=== PATIENT | female | born 1950 | race Caucasian/White ===

== ENCOUNTER → 2022-09-09 | Day surgery (SDC) | payer MEDICARE ==
[~2022-09-09] MED LIST: ALLOPURINOL300 MG PO; ARICEPT5 MG PO; BARIATRIC MV-I1 EACH; CEFTRIAXONE 1 GM VIAL ONE; CYMBALTA30 MG; DEXAMETHASONE SOD PHOS INJ 4 MG/ML SDV ONE; FENTANYL CITRATE/PF 100MCG/2 ML INJ ONE; IOPAMIDOL 610MG/1ML 300 MG/ML VIAL IV ONE; LACTATED RINGER'S 1,000 ML ONE; LIDOCAINE HCL 2% LOCAL INJ 5 ML SDV VIAL INJ ONE; NEURONTIN300 MG PO; ONDANSETRON HCL INJ 2MG/ML 2ML 2 MG/ML VIAL ONE; POVIDONE IODINE 0.05% 0.05 % ML PO ONE; PROPOFOL IV EMULSION 10 MG/ML 20 ML VIAL ONE; REMERON45 M1; SEVOFLURANE INHAL SOLN 250 ML PEN BTL ONE; TEMAZEPAM15 MG PO
[2022-09-09 09:00] VITALS: BP 129/74; PULSE 51; RESP 16; O2SAT 97
== END | disposition home or self-care (01) ==
LOC: OR 05:43
PROVIDERS: ATTEND Urology
DX: N20.1 Calculus of ureter (principal); N13.30 Unspecified hydronephrosis; Z79.899 Other long term (current) drug therapy
CPT/HCPCS: 52356; 71046; 74420; C1758; C1769; C2617; J0696; J1100; J2001; J2405; J2704; J3010; J7121; Q9967

== ENCOUNTER → 2022-09-30 | Day surgery (SDC) | payer MEDICARE ==
[~2022-09-30] MED LIST changes: -LACTATED RINGER'S 1,000 ML ONE; +MIDAZOLAM HCL 2 MG/2 ML VIAL ONE
[2022-09-30 06:32] LABS: BASOPHILS % 0.5 % (0.0-1.0); EOSINOPHILS # (AUTO) 0.1 (0.0-0.4); EOSINOPHILS % 1.9 % (0.0-6.0); HEMATOCRIT 37.1 % (34.2-44.1); HEMOGLOBIN 10.5 g/dL (12.0-16.0); LYMPHOCYTES % 13.7 % (18.0-39.1); MEAN CORPUSCULAR HEMOGLOBIN 24.7 pg (28-32); MEAN CORPUSCULAR HGB CONC 28.3 g/dL (31-35); MEAN CORPUSCULAR VOLUME 87.3 fL (81-99); MONOCYTES # (AUTO) 0.5 (0.2-0.8); MONOCYTES % 7.2 % (4.4-11.3); NEUTROPHILS # (AUTO) 5.6 (2.1-6.9); NEUTROPHILS % 76.2 % (38.7-80.0); PLATELET COUNT 237 x10e3/uL (140-360); RED BLOOD COUNT 4.25 x10e6/uL (3.6-5.1); RED CELL DISTRIBUTION WIDTH 18.6 % (11.7-14.4)
[2022-09-30 07:53] VITALS: TEMP 97.2
[2022-09-30 08:50] VITALS: BP 142/66; PULSE 67; RESP 16; O2SAT 95
== END | disposition home or self-care (01) ==
LOC: OR 05:34
PROVIDERS: ATTEND Urology
DX: N20.0 Calculus of kidney (principal); N13.30 Unspecified hydronephrosis; Z46.6 Encounter for fitting and adjustment of urinary device; D64.9 Anemia, unspecified; M06.9 Rheumatoid arthritis, unspecified; M19.90 Unspecified osteoarthritis, unspecified site; F32.A Depression, unspecified; F17.210 Nicotine dependence, cigarettes, uncomplicated; Z79.899 Other long term (current) drug therapy; Z86.711 Personal history of pulmonary embolism
CPT/HCPCS: 36415; 52356; 74420; 85025; 88300; C1766; C1769; C2617; J0696; J1100; J2001; J2250; J2405; J2704; J3010; Q9967